=== PATIENT | female | born 1955 | race African-American/Black ===

== ENCOUNTER 2018-02-25 11:08 | Emergency (ER) | payer BC ==
[~2018-02-25] VITALS: Ht 154.9 cm; Wt 53.0 kg
[2018-02-25] MEDS ORDERED: MORPHINE SULFATE 4 MG/ML CPJ (NOT FOR IM USE) IV STA (12:13)
[2018-02-25] MEDS ORDERED: ONDANSETRON HCL 4MG/2ML VIAL IV STA (12:13)
[2018-02-25] MEDS ORDERED: SODIUM CHLORIDE 0.9% 1,000 ML IV ONE (12:13)
[2018-02-25 12:21] LABS: CLARITY URINE CLEAR (CLEAR); COLOR URINE YELLOW (YELLOW); KETONES URINE NEGATIVE (NEGATIVE); LEUKOCYTE ESTERASE URINE 2+ (NEGATIVE); NITRITE URINE NEGATIVE (NEGATIVE); OCCULT BLOOD URINE NEGATIVE (NEGATIVE); PH URINE >=9.0 (4.5-8.0); PROTEIN URINE NEGATIVE (NEGATIVE); SPECIFIC GRAVITY URINE 1.014 (1.005-1.030); UROBILINOGEN URINE 0.2 E.U./dL (0.2-1.0)
[2018-02-25 12:38] LABS: BASOPHILS % 0.8 % (0.0-2.0); EOSINOPHILS % 4.2 % (0.0-5.0); HEMATOCRIT. 36.2 % (36.0-48.0); HEMOGLOBIN. 12.2 g/dL (12.0-16.0); LYMPHOCYTES % 35.6 % (20.0-50.0); MEAN CORPUSCULAR HEMOGLOBIN 27.7 pg (28.0-32.0); MEAN CORPUSCULAR VOLUME 82.3 fL (81.0-99.0); MEAN PLATELET VOLUME 7.6 fl (7.4-10.4); MONOCYTES % 6.8 % (2.0-8.0); NEUTROPHILS % 52.6 % (40.0-76.0); PLATELET 265 x1000/uL (130-400); RED CELL DISTRIBUTION WIDTH 13.5 % (11.6-14.6)
[2018-02-25 12:45] LABS: CHLORIDE 106 mEq/L (98-107); PROTHROMBIN TIME 10.7 sec (9.4-11.6)
[2018-02-25] MEDS ORDERED: IOHEXOL-300 100 ML BOTTLE ONE (15:20)
[2018-02-25 17:11] VITALS: BP 119/62
== END 2018-02-25 17:25 | disposition home or self-care (01) ==
LOC: ER 12:50
DX: R10.30 Lower abdominal pain, unspecified (principal); N39.0 Urinary tract infection, site not specified; N28.1 Cyst of kidney, acquired; K80.20 Calculus of gallbladder without cholecystitis without obstruction; J45.909 Unspecified asthma, uncomplicated; M41.9 Scoliosis, unspecified; Z88.0 Allergy status to penicillin; Z88.5 Allergy status to narcotic agent
CPT/HCPCS: 36415; 71045; 74177; 80053; 81003; 83690; 85025; 85610; 85730; 86850; 86900; 86901; 93005; 96361; 96374; 96375; 99285; J2270; J2405; J7030; Q9967; Z7610

== ENCOUNTER → 2021-03-22 | Outpatient (CLI) | payer BC | END | disposition home or self-care (01) | LOC: NM 07:57 | PROVIDERS: ATTEND Internal Medicine Endocrinology, Diabetes & Metabolism | DX: E03.9 Hypothyroidism, unspecified (principal) | CPT/HCPCS: 79005; A9517 ==

== ENCOUNTER 2025-04-03 04:44 | Inpatient (IN) | payer OTHER ==
[~2025-04-03] VITALS: Ht 162.6 cm; Wt 43.7 kg
[~2025-04-03 04:44] MED LIST: CIPR500S3 MT; LEVO88TA7 PO; MECL-299 MT
[2025-04-03 05:52] LABS: HEMOGLOBIN. 12.1 g/dL (12.0-16.0); MEAN CORPUSCULAR HEMOGLOBIN 29.3 pg (28.0-32.0); MEAN CORPUSCULAR HGB CONC 33.5 g/dL (31.0-37.0); MEAN CORPUSCULAR VOLUME 87.3 fL (81.0-99.0); MEAN PLATELET VOLUME 7.3 fl (7.4-10.4); PLATELET 249 x1000/uL (130-400); RED BLOOD CELL COUNT 4.13 mill/uL (4.2-5.4); RED CELL DISTRIBUTION WIDTH 14.3 % (11.6-14.6)
[2025-04-03 05:54] LABS: DIFFERENTIAL COMMENT 1
[2025-04-03] MEDS: ACETAMINOPHEN 325MG TABLET PO ONE (05:57)
[2025-04-03] MEDS: MECLIZINE 25MG TABLET PO ONE (06:02)
[2025-04-03 06:06] LABS: CHLORIDE 105 mEq/L (98-107); POTASSIUM 3.8 mEq/L (3.5-5.1); SODIUM 140 mEq/L (136-145)
[2025-04-03 06:07] LABS: CALCIUM 9.9 mg/dL (8.7-10.4); CARBON DIOXIDE 28 mEq/L (21-32)
[2025-04-03 06:12] LABS: CREATININE 0.7 mg/dL (0.6-1.0); GLUCOSE 96 mg/dL (70-105); UREA NITROGEN BLOOD 14 mg/dL (9-23)
[2025-04-03 06:14] LABS: ALANINE AMINOTRANSFERASE 64 IU/L (10-49); ALBUMIN 4.6 g/dL (3.2-4.8); ASPARTATE AMINOTRANSFERASE 81 IU/L (<34); BILIRUBIN DIRECT 0.1 mg/dL (<=3.0); BILIRUBIN TOTAL 0.4 mg/dL (0.1-1.0); PROTEIN TOTAL 7.2 g/dL (6.0-8.3); TROPONIN I HIGH SENSITIVITY < 4 ng/L (3.0-34)
[2025-04-03] MEDS: METOCLOPRAMIDE HCL 10MG/2ML VIAL IV ONE (06:47)
[2025-04-03 07:21] LABS: PLATELET ESTIMATE NORMAL
[2025-04-03 08:00] VITALS: BP 138/66; PULSE 70; RESP 18; TEMP 35.7; O2SAT 100
[2025-04-03 08:27] LABS: TROPONIN I HIGH SENSITIVITY < 4 ng/L (3.0-34)
[2025-04-03 11:00] VITALS: BP 138/66; PULSE 70; RESP 18; TEMP 35.8
[2025-04-03] MEDS ORDERED: ONDANSETRON HCL 4MG/2ML INJ IV PRN (11:15)
[2025-04-03] MEDS ORDERED: HYDROCODONE/ACETAMINOPHEN 5/325MG TABLET PO PRN (11:15)
[2025-04-03] MEDS ORDERED: IPRATROPIUM/ALBUTEROL 0.5-3(2.5)MG/3ML NEB NEB PRN (11:15)
[2025-04-03] MEDS ORDERED: ZOLPIDEM TARTRATE 5MG TABLET PO PRN (11:15)
[2025-04-03 12:00] VITALS: BP 130/63; PULSE 67; RESP 18; TEMP 36.3; O2SAT 98
[2025-04-03] MEDS: SODIUM CHLORIDE 0.9% 1,000 ML IV SCH (14:49)
[2025-04-03] MEDS: ENOXAPARIN 40MG/0.4ML SYR SUBCUT SCH (14:50)
[2025-04-03 16:00] VITALS: BP 120/71; PULSE 79; RESP 18; TEMP 36.4; O2SAT 97
[2025-04-03 20:00] VITALS: BP 124/77; PULSE 69; RESP 20; TEMP 36.5; O2SAT 100
[2025-04-04] VITALS: BP 138/74; PULSE 72; RESP 20; TEMP 36.4; O2SAT 99
[2025-04-04 04:00] VITALS: BP 145/86; PULSE 80; RESP 20; TEMP 36.4; O2SAT 98
[2025-04-04] MEDS: LEVOTHYROXINE SODIUM 88MCG TABLET PO SCH (07:18)
[2025-04-04 07:34] LABS: CARBON DIOXIDE 27 mEq/L (21-32); CHLORIDE 105 mEq/L (98-107); POTASSIUM 3.4 mEq/L (3.5-5.1); SODIUM 143 mEq/L (136-145)
[2025-04-04 07:35] LABS: CALCIUM 10.3 mg/dL (8.7-10.4)
[2025-04-04 07:40] LABS: CREATININE 0.6 mg/dL (0.6-1.0); GLUCOSE 108 mg/dL (70-105); UREA NITROGEN BLOOD 11 mg/dL (9-23)
[2025-04-04 08:00] VITALS: BP 132/62; PULSE 75; RESP 18; TEMP 36.2; O2SAT 98
[2025-04-04] MEDS: PANTOPRAZOLE SODIUM 40 MG/VIAL IV SCH (08:25)
[2025-04-04] MEDS: MECLIZINE 25MG TABLET PO PRN (08:27)
[2025-04-04] MEDS: ACETAMINOPHEN 325MG TABLET PO PRN (08:29)
[2025-04-04] MEDS: HALOPERIDOL LACTATE 5MG/ML VIAL IM SCH (09:05)
[2025-04-04 12:00] VITALS: BP 136/76; PULSE 91; RESP 18; TEMP 36.3; O2SAT 98
[2025-04-04 16:00] VITALS: BP 130/70; PULSE 81; RESP 18; TEMP 36.4; O2SAT 99
[2025-04-04 18:40] LABS: CLARITY URINE CLEAR (CLEAR); COLOR URINE YELLOW (YELLOW); GLUCOSE URINE NEGATIVE (NEGATIVE); KETONES URINE TRACE (NEGATIVE); LEUKOCYTE ESTERASE URINE 2+ (NEGATIVE); NITRITE URINE NEGATIVE (NEGATIVE); OCCULT BLOOD URINE NEGATIVE (NEGATIVE); PH URINE 5.5 (4.5-8.0); PROTEIN URINE TRACE (NEGATIVE); SPECIFIC GRAVITY URINE 1.015 (1.005-1.030); UROBILINOGEN URINE 0.2 E.U./dL (0.2-1.0)
[2025-04-04 19:04] LABS: *AMPHETAMINES SCREEN URINE NEGATIVE (NEGATIVE)
[2025-04-04 19:05] LABS: *BARBITURATES SCREEN URINE NEGATIVE (NEGATIVE); *BENZODIAZEPINES SCREEN URINE NEGATIVE (NEGATIVE); *COCAINE SCREEN URINE NEGATIVE (NEGATIVE); CANNABINOID URINE SCREEN NEGATIVE (NEGATIVE); ECSTASY MDMA SCREEN URINE NEGATIVE (NEGATIVE); METHADONE URINE SCREEN NEGATIVE (NEGATIVE); OPIATES URINE SCREEN NEGATIVE (NEGATIVE); PHENCYCLIDINE URINE SCREEN NEGATIVE (NEGATIVE)
[2025-04-04 19:06] LABS: BACTERIA URINE TRACE; RBC URINE 0-2 /hpf (0-2); SQUAMOUS EPITHELIAL CELL URINE FEW /lpf (RARE/1+)
[2025-04-05 09:02] LABS: CARBON DIOXIDE 29 mEq/L (21-32); CHLORIDE 105 mEq/L (98-107); POTASSIUM 3.5 mEq/L (3.5-5.1); SODIUM 143 mEq/L (136-145)
[2025-04-05 09:07] LABS: CREATININE 0.6 mg/dL (0.6-1.0); GLUCOSE 107 mg/dL (70-105)
[2025-04-05 09:08] LABS: UREA NITROGEN BLOOD 9 mg/dL (9-23)
[2025-04-05] MEDS: CLONIDINE 0.1MG TABLET PO PRN (10:59)
[2025-04-05] MEDS ORDERED: POTASSIUM CHLORIDE 20MEQ TABLET SR PO SCH (12:30)
[2025-04-05] MEDS: CEFTRIAXONE 1GM/50ML 50 ML IV SCH (15:53)
[2025-04-05] MEDS: POTASSIUM CHLORIDE 20MEQ TABLET SR PO SCH (15:53)
[2025-04-05] MEDS ORDERED: ACET-2708 MT (16:35)
[2025-04-05] MEDS ORDERED: SULF1TAB48 MT (16:35)
[2025-04-05] MEDS ORDERED: DONE10TA11 MT (17:06)
[2025-04-05] MEDS ORDERED: AMLO5TAB6 MT (17:06)
[2025-04-05 18:03] VITALS: BP 163/93; PULSE 97; TEMP 97.1; O2SAT 99
[2025-04-05 18:40] VITALS: BP 163/93; PULSE 97; TEMP 97.1; O2SAT 99
[2025-04-05] MEDS ORDERED: ATORVASTATIN CALCIUM 20MG TABLET PO SCH (21:00)
[2025-04-06] MEDS ORDERED: ENOXAPARIN 30MG/0.3ML SYR SUBCUT SCH (09:00)
== END 2025-04-05 19:00 | disposition home or self-care (01) | DRG 74 ==
LOC: ER 05:29 → 6WST 07:42 → EDBEDREQ 07:44 → EDBEDREQTM 07:44
PROVIDERS: ADMIT Internal Medicine; ATTEND Internal Medicine
DX: G90.89 Other disorders of autonomic nervous system (principal); G93.49 Other encephalopathy; J45.909 Unspecified asthma, uncomplicated; F03.90 Unspecified dementia, unspecified severity, without behavioral disturbance, psychotic disturbance, mood disturbance, and anxiety; Z88.0 Allergy status to penicillin; Z88.5 Allergy status to narcotic agent; Z91.81 History of falling
CPT/HCPCS: 36415; 70551; 71045; 80048; 80076; 80305; 81003; 84484; 85025; 93005; 93970; 97161; 99285; J0696; J1630; J1650; J2470; J2765; J8597